=== PATIENT | male | born 1960 | race Caucasian/White ===

== ENCOUNTER 2017-11-07 08:19 | Observation (INO) | payer OTHER ==
[2017-11-07 08:48] LABS: Absolute Lymphocytes (CBC) 2.1 K/uL (0.7-4.9); Absolute Monocytes 0.8 K/uL (0.1-1.3); Absolute Neutrophil 7.8 K/uL (1.8-8.0); Basophils % 0.7 % (0-1.3); Eosinophils % 1.9 % (0-4.4); Hematocrit 44.4 % (39.6-49.0); Lymphocytes % 18.9 % (15.3-44.8); MCH 30.6 pg (27.0-35.0); MCV 87.7 fL (80-100); MPV 8.7 fL (7.6-11.3); Monocytes % 7.5 % (3.3-12.3); RBC Red Blood Cell Count 5.06 M/uL (4.33-5.43)
[2017-11-07 08:55] LABS: Protime INR 0.96
[2017-11-07] MEDS ORDERED: ASPIRIN 81 MG CHEWABLE TABLET ONE (09:09)
[2017-11-07 09:11] LABS: ALT/SGPT 37 U/L (12-78); AST/SGOT 16 U/L (15-37); Albumin 4.3 g/dL (3.4-5.0); Alkaline Phosphatase 75 U/L (45-117); BUN Blood Urea Nitrogen 18 mg/dL (7-18); Bicarbonate 23 mmol/L (21-32); Bilirubin Direct 0.1 mg/dL (0-0.2); Bilirubin Total 0.6 mg/dL (0.2-1.0); Glucose Level 201 mg/dL (74-106); Magnesium 2.2 mg/dL (1.8-2.4); NT PRO-BNP 37 pg/mL (<125); Potassium 3.6 mmol/L (3.5-5.1); Protein, Total 7.5 g/dL (6.4-8.2); Sodium Level 140 mmol/L (136-145); Troponin (Emerg Dept Use Only) < 0.02 ng/mL (0.0-0.045)
--- NOTE | 2017-11-07 10:00 | RAD REPORT ---
EXAM DESCRIPTION: Staci Single View11/07/2017 9:52 am CLINICAL HISTORY: Chest pain COMPARISON: none FINDINGS: The lungs appear clear of acute infiltrate. The heart is normal size IMPRESSION: No acute abnormalities displayed
--- NOTE | 2017-11-07 10:06 | EDPHYS ---
Physician Documentation [facility] Name: Santos Beltran Age: 57 yrs Sex: Male : 1960 Arrival Date: 11/07/2017 Time: 08:21 Bed 7 Private MD: None, None ED Physician Willie Meeks HPI: 11/07 09:25 This 57 yrs old Male presents to ER via Ambulatory with complaints of Chest jr8 Pain. 09:25 The patient or guardian reports chest pain that is located primarily in the substernal jr8 area. Onset: gradually, 2 day(s) ago, and became worse. The pain radiates to both shoulders, back. Associated signs and symptoms: The patient has no apparent associated signs or symptoms. The chest pain is described as a pressure, sharp. Duration: The patient or guardian reports multiple episodes. Modifying factors: The symptoms are alleviated by nothing. the symptoms are aggravated by deep breath. Severity of pain: At its worst the pain was moderate in the emergency department the pain is unchanged. The patient has not experienced similar symptoms in the past. The patient has not recently seen a physician. Historical: - Allergies: 08:41 No Known Allergies; ch - Home Meds: 08:41 metoprolol tartrate 100 mg Oral tab 1 tab [Active]; losartan 100 mg oral tab 1 tab once ch daily [Active]; terazosin 1 mg oral cap 1 cap once daily [Active]; clonidine HCl 0.1 mg Oral tab 1 tab as needed [Active]; - PMHx: 08:41 bph; Hypertension; ch - PSHx: 08:41 hernia-umbilical; ch - Immunization history:: Adult Immunizations up to date, Last tetanus immunization: not indicated for visit today. > 10 years ago Pneumococcal vaccine is not up to date, Flu vaccine is not up to date. - Social history:: Smoking status: Patient/guardian denies using tobacco, Patient uses alcohol, on a daily basis. admits to "couple of beers" a day. Patient/guardian denies using street drugs. - Ebola Screening: : Patient negative for fever greater than or equal to 101.5 degrees Fahrenheit, and additional compatible Ebola Virus Disease symptoms Patient denies exposure to infectious person Patient denies travel to an Ebola-affected area in the 21 days before illness onset No symptoms or risks identified at this time. ROS: 09:25 Eyes: Negative for injury, pain, redness, and discharge, ENT: Negative for injury, jr8 pain, and discharge, Neck: Negative for injury, pain, and swelling, Respiratory: Negative for shortness of breath, cough, wheezing, and pleuritic chest pain, Abdomen/GI: Negative for abdominal pain, nausea, vomiting, diarrhea, and constipation, Back: Negative for injury and pain, MS/Extremity: Negative for injury and deformity, Skin: Negative for injury, rash, and discoloration, Neuro: Negative for headache, weakness, numbness, tingling, and seizure. 09:25 Cardiovascular: Positive for chest pain, Negative for edema, orthopnea, palpitations, paroxysmal nocturnal dyspnea. Exam: 09:25 Eyes: Pupils equal round and reactive to light, extra-ocular motions intact. Lids and jr8 lashes normal. Conjunctiva and sclera are non-icteric and not injected. Cornea within normal limits. Periorbital areas with no swelling, redness, or edema. ENT: Nares patent. No nasal discharge, no septal abnormalities noted. Tympanic membranes are normal and external auditory canals are clear. Oropharynx with no redness, swelling, or masses, exudates, or evidence of obstruction, uvula midline. Mucous membranes moist. Neck: Trachea midline, no thyromegaly or masses palpated, and no cervical lymphadenopathy. Supple, full range of motion without nuchal rigidity, or vertebral point tenderness. No Meningismus. Chest/axilla: Normal chest wall appearance and motion. Nontender with no deformity. No lesions are appreciated. Cardiovascular: Regular rate and rhythm with a normal S1 and S2. No gallops, murmurs, or rubs. Normal PMI, no JVD. No pulse deficits. Respiratory: Lungs have equal breath sounds bilaterally, clear to auscultation and percussion. No rales, rhonchi or wheezes noted. No increased work of breathing, no retractions or nasal flaring. Abdomen/GI: Soft, non-tender, with normal bowel sounds. No distension or tympany. No guarding or rebound. No evidence of tenderness throughout. Back: No spinal tenderness. No costovertebral tenderness. Full range of motion. Skin: Warm, dry with normal turgor. Normal color with no rashes, no lesions, and no evidence of cellulitis. MS/ Extremity: Pulses equal, no cyanosis. Neurovascular intact. Full, normal range of motion. Neuro: Awake and alert, GCS 15, oriented to person, place, time, and situation. Cranial nerves II-XII grossly intact. Motor strength 5/5 in all extremities. Sensory grossly intact. Cerebellar exam normal. Normal gait. Vital Signs: 08:41 BP 178 / 101; Pulse 72; Resp 16; Temp 98.8; Pulse Ox 96% on R/A; Weight 108.86 kg; ch Height 5 ft. 10 in. (177.80 cm); Pain 3/10; 09:58 BP 123 / 74; Pulse 71; Resp 16; Temp 98.5; Pulse Ox 99% on R/A; Pain 2/10; ch 10:29 BP 144 / 78; Pulse 67; Resp 18; Temp 98.5; Pulse Ox 99% on R/A; Pain 1/10; ch 11:43 BP 128 / 80; Pulse 68; Resp 14; Temp 98.3; Pulse Ox 99% on R/A; Pain 0/10; ch 08:41 Body Mass Index 34.44 (108.86 kg, 177.80 cm) ch MDM: 08:29 Patient medically screened. 8 10:02 HEART Score: History: Moderately Suspicious (1), ECG: Normal (0), Age: > 45 and < 65 jr8 years (1), Risk Factors: > or = 3 Risk factors for atherosclerotic disease (2), [Hypertension] [DM] [+ Family HX] [Obesity] Troponin: < or = 1 x Normal Limit (0). The patient was given aspirin in the Emergency Department. Data reviewed: vital signs, nurses notes, lab test result(s), EKG, radiologic studies, plain films. Data interpreted: Pulse oximetry: on room air is 99 %. Interpretation: normal. Counseling: I had a detailed discussion with the patient and/or guardian regarding: the historical points, exam findings, and any diagnostic results supporting the discharge/admit diagnosis, lab results, radiology results, the need for further work-up and treatment in the hospital. 11/07 08:34 Order name: Basic Metabolic Panel [facility] 11/07 08:34 Order name: CBC with Diff; Complete Time: 09:04 [facility] 11/07 08:34 Order name: LFT's; Complete Time: 09:26 jr8 09/15 08:34 Order name: Magnesium; Complete Time: 09:26 11/07 08:34 Order name: NT PRO-BNP; Complete Time: 09:26 11/07 08:34 Order name: PT-INR; Complete Time: 09:04 11/07 08:34 Order name: Troponin (emerg Dept Use Only); Complete Time: 09:26 11/07 08:34 Order name: XRAY Chest (1 view); Complete Time: 10:02 11/07 08:34 Order name: EKG; Complete Time: 08:35 11/07 08:34 Order name: Cardiac monitoring; Complete Time: 08:43 11/07 08:34 Order name: EKG - Nurse/Tech; Complete Time: 08:43 11/07 08:35 Order name: Basic Metabolic Panel; Complete Time: 09:26 EDMA 11/07 09:13 Order name: Urine Dipstick--Ancillary (enter results) 11/07 08:34 Order name: IV Saline Lock; Complete Time: 08:43 11/07 08:34 Order name: Labs collected and sent; Complete Time: 08:43 11/07 08:34 Order name: O2 Per Protocol; Complete Time: 08:43 11/07 08:34 Order name: O2 Sat Monitoring; Complete Time: 08:43 11/07 08:34 Order name: Urine Dipstick-Ancillary (obtain specimen); Complete Time: 09:10 Administered Medications: 09:10 Drug: Aspirin Chewable Tablet 324 mg Route: PO; aa5 09:57 Follow up: Response: No adverse reaction; Marked relief of symptoms ch Disposition: 11/07/17 10:05 Hospitalization ordered by Manuela Leon for Observation. Preliminary diagnosis is Chest pain, unspecified. - Bed requested for Telemetry/MedSurg (observation). - Status is Observation. ch - Condition is Stable. - Problem is new. - Symptoms have improved. UTI on Admission? No Addendum: 11/09/2017 07:49 Co-signature as Attending Physician, Willie Meeks MD I agree with the assessment and w a plan of care. Signatures: Dispatcher [employer] EDYulissa Brunson RN RN hesham Jessica Araujo, RN RN dw Annia Darby, RN RN aa5 Armani Naik PA PA jr8 Willie Meeks MD MD wa Corrections: (The following items were deleted from the chart) 11/07 11:33 10:05 Hospitalization Ordered by Manuela Leon MD for Observation. Preliminary diagnosis is Chest pain, unspecified. Bed requested for Telemetry/MedSurg (observation). Status is Observation. Condition is Stable. Problem is new. Symptoms have improved. UTI on Admission? No. jr8 12:35 11:33 11/07/2017 10:05 Hospitalization Ordered by Manuela Leon MD for Observation. Preliminary diagnosis is Chest pain, unspecified. Bed requested for Telemetry/MedSurg (observation). Status is Observation. Condition is Stable. Problem is new. Symptoms have improved. UTI on Admission? No. dw
--- NOTE | 2017-11-07 10:06 | ER ---
Nurse's Notes [facility] Name: Santos Beltran Age: 57 yrs Sex: Male : 1960 Arrival Date: 11/07/2017 Time: 08:21 Bed 7 Private MD: None, None Diagnosis: Chest pain, unspecified Presentation: 11/07 08:35 Presenting complaint: Patient states: pain to lower neck/upper chest started Thursday ch evening. comes and goes, but pain is getting progressively worse. pt is worse with deep breath in. last episode was at 0500. pt has hypertension and father of massive heart attack after having several heart stents. stopped smoking 12 years ago, pt drinks daily, more on the weekends. Transition of care: patient was not received from another setting of care. Onset of symptoms was November 05, 2017 at 15:00. Risk Assessment: Do you want to hurt yourself or someone else? Patient reports no desire to harm self or others. Initial Sepsis Screen: Does the patient meet any 2 criteria? No. Patient's initial sepsis screen is negative. Does the patient have a suspected source of infection? No. Patient's initial sepsis screen is negative. Care prior to arrival: None. 08:35 Method Of Arrival: Ambulatory 08:35 Acuity: JIMMY 3 ch Triage Assessment: 08:41 General: Appears in no apparent distress. comfortable, Behavior is calm, cooperative, ch appropriate for age. Pain: Complains of pain in right clavicle, left clavicle, anterior aspect of right upper chest, anterior aspect of left upper chest and mid-sternal area Pain radiates to back, chest, left arm and neck Pain currently is 3 out of 10 on a pain scale. at worst was 9 out of 10 on a pain scale. Pain began suddenly, 2-3 days ago. Neuro: No deficits noted. Cardiovascular: Heart tones S1 S2 present Capillary refill < 3 seconds in bilateral fingers Clubbing of nail beds is absent Patient's skin is warm and dry. Respiratory: Airway is patent Respiratory effort is even, unlabored, Breath sounds are clear bilaterally. Historical: - Allergies: 08:41 No Known Allergies; ch - Home Meds: 08:41 metoprolol tartrate 100 mg Oral tab 1 tab [Active]; losartan 100 mg oral tab 1 tab once ch daily [Active]; terazosin 1 mg oral cap 1 cap once daily [Active]; clonidine HCl 0.1 mg Oral tab 1 tab as needed [Active]; - PMHx: 08:41 bph; Hypertension; ch - PSHx: 08:41 hernia-umbilical; ch - Immunization history:: Adult Immunizations up to date, Last tetanus immunization: not indicated for visit today. > 10 years ago Pneumococcal vaccine is not up to date, Flu vaccine is not up to date. - Social history:: Smoking status: Patient/guardian denies using tobacco, Patient uses alcohol, on a daily basis. admits to "couple of beers" a day. Patient/guardian denies using street drugs. - Ebola Screening: : Patient negative for fever greater than or equal to 101.5 degrees Fahrenheit, and additional compatible Ebola Virus Disease symptoms Patient denies exposure to infectious person Patient denies travel to an Ebola-affected area in the 21 days before illness onset No symptoms or risks identified at this time. Screenin:32 Abuse screen: Denies threats or abuse. Nutritional screening: No deficits noted. la1 Tuberculosis screening: No symptoms or risk factors identified. Fall Risk None identified. Assessment: 09:58 Reassessment: Patient appears in no apparent distress at this time. Patient and/or ch family updated on plan of care and expected duration. Pain level reassessed. Patient is alert, oriented x 3, equal unlabored respirations, skin warm/dry/pink. Patient states feeling better. General: Appears in no apparent distress. uncomfortable. Pain: Denies pain. Neuro: No deficits noted. Level of Consciousness is awake, alert, obeys commands, Oriented to person, place, time, situation. Cardiovascular: No deficits noted. 10:29 Reassessment: Patient appears in no apparent distress at this time. Patient and/or ch family updated on plan of care and expected duration. Pain level reassessed. Patient is alert, oriented x 3, equal unlabored respirations, skin warm/dry/pink. pt c/o increase pain after walking to restroom, states he flet more pain. pain is gone by the time I get in the room. pt verb understanding of not walking any more. awaiting room assignment now. Pain: Complains of pain in chest. 11:42 Reassessment: Patient appears in no apparent distress at this time. attempting to call ch report now. 11:55 Reassessment: Patient appears in no apparent distress at this time. I attempt to call report again, told to call back in 5 min as the nurse does not know she is getting a patient. Vital Signs: 08:41 BP 178 / 101; Pulse 72; Resp 16; Temp 98.8; Pulse Ox 96% on R/A; Weight 108.86 kg; ch Height 5 ft. 10 in. (177.80 cm); Pain 3/10; 09:58 BP 123 / 74; Pulse 71; Resp 16; Temp 98.5; Pulse Ox 99% on R/A; Pain 2/10; ch 10:29 BP 144 / 78; Pulse 67; Resp 18; Temp 98.5; Pulse Ox 99% on R/A; Pain 1/10; ch 11:43 BP 128 / 80; Pulse 68; Resp 14; Temp 98.3; Pulse Ox 99% on R/A; Pain 0/10; ch 08:41 Body Mass Index 34.44 (108.86 kg, 177.80 cm) Vitals: 09:58 Cardiac Rhythm Assessment Regular Sinus rhythm. ED Course: 08:21 Patient arrived in ED. mr 08:21 None, None is Private Physician. mr 08:23 Yulissa Willoughby, RN is Primary Nurse. 08:29 Armani Naik PA is PHCP. jr8 08:29 Willie Meeks MD is Attending Physician. jr8 08:32 Inserted saline lock: 20 gauge in right wrist, using aseptic technique. Blood collected.la1 08:32 No provider procedures requiring assistance completed. EKG done, by product technician. reviewed la1 by Armani MENDOZA. Patient maintains SpO2 saturation greater than 95% on room air. 08:32 Placed in gown. Bed in low position. Call light in reach. quality assurance monitor chassis on. Pulse ox la1 on. NIBP on. 08:32 Arm band placed on left wrist. la1 08:39 Triage completed. 08:41 EKG completed in triage. Results shown to . EKG completed in triage. Results shown to . EKG completed in triage. Results shown to MD. 09:52 XRAY Chest (1 view) In Process Unspecified. EDMS 10:04 Manuela Leon MD is Hospitalizing Provider. jr8 Administered Medications: 09:10 Drug: Aspirin Chewable Tablet 324 mg Route: PO; aa5 09:57 Follow up: Response: No adverse reaction; Marked relief of symptoms Outcome: 10:05 Decision to Hospitalize by Provider. jr8 12:35 Patient left the ED. Signatures: Dispatcher [employer] EDYulissa Brunson RN RN Dottie Polanco Annia Darby RN RN aa5 Armani Naik PA PA jr Andriy Arreola RN RN la1
[2017-11-07 13:12] LABS: Urine Blood NEGATIVE (NEG); Urine Glucose NEGATIVE (NEG); Urine Protein NEGATIVE (NEG)
[2017-11-07 13:56] VITALS: BMI 34.4
[2017-11-07] MEDS ORDERED: ONDANSETRON 4 MG/2 ML VIAL IV PRN (16:44)
[2017-11-07] MEDS ORDERED: NITROGLYCERIN 0.4 MG/TAB SL PRN (16:44)
[2017-11-07] MEDS ORDERED: ACETAMINOPHEN 500 MG TAB PO PRN (16:44)
[2017-11-07] MEDS ORDERED: MORPHINE 4 MG/ML SYR IV PRN (16:44)
[2017-11-07] MEDS ORDERED: cloNIDine HCl 0.1 MG TAB PO PRN (16:47)
[2017-11-07] MEDS ORDERED: TERAZOSIN HCL 1 MG CAP PO SCH (17:00)
[2017-11-07] MEDS ORDERED: ENOXAPARIN 40 MG/0.4 ML SQ SCH (17:00)
[2017-11-07 17:47] LABS: Creatine Phosphokinase 121 U/L (39-308); Troponin I < 0.02 ng/mL (0.0-0.045)
[2017-11-07] MEDS: ATORVASTATIN 40 MG TAB PO SCH ×2 (20:28→20:30)
--- NOTE | 2017-11-07 20:50 | HP ---
Date of Admission: 11/07/2017 Reason For Admission: Chest pain. History Of Present Illness: This is a 57-year-old gentleman who presented with history of hypertensi on, enlarged prostate, with progressive upper chest pain that is radiating to both shoulders, not rel ated to exertion. No nausea or vomiting. No shortness of breath. In the ER, he was evaluated and E KG was normal. Cardiac enzymes were negative. He did not relate the pain to exertion. The patient admitted to be ruled out. He is currently feeling well. He received aspirin in the emergency room a nd admitted. His is at the bedside. He is very anxious to be discharged, if his cardiac enzyme s are negative. Review of Systems: Otherwise as below. Past Medical History: Significant for hypertension, enlarged prostate. Past Surgical History: Significant for hernia repair. Allergies: NONE. Social History: The patient is . He has 7 kids. He works as a truck driver helper. He does not sm christiano or use any drugs, but he does drink every day for some years. Family History: Significant for father of myocardial infarction. Mother alive and relatively h ealthy. Review of Systems: Denies any fever, chills, night sweats, dizziness, lightheaded, headache, blurred vision. There is n o change in mood or affect. Does not have any cough, sputum, or shortness of breath. He does have c hest pain. No PND, orthopnea, dyspnea on exertion. No lower extremity edema. No nausea, vomiting, or abdominal pain, change in bowel movement, diarrhea, or constipation. No dysuria, frequency, urgen cy, hematuria. There is no history of depression, anxiety, seizure or stroke. Physical Examination: Vital Signs: Blood pressure is 127/79, respiratory rate 16, pulse 60, temperature 98.1. General: The patient is alert and oriented x3. Does not look in any distress. HEENT: Atraumatic, normocephalic. PERRLA. Oral mucosa is moist. Neck: Supple. No JVD. No carotid bruits. Chest: Clear to auscultation. Good air entry. Heart: Regular rate and rhythm. S1, S2 normal. No gallop or murmur. Abdomen: Soft, nontender, No masses. No hepatosplenomegaly. Obese. Positive bowel sounds. Extremities: No clubbing, cyanosis, or edema. No calf tenderness. Neurologic: Grossly intact. Cranial exam 2-12 intact. Normal sensation. Normal reflexes. Normal muscle strength. Laboratory Data: Today showed CBC within normal except for white blood cells of 11. PT/INR was norm al. Chemistry within normal except for glucose of 201, but the patient was not fasting. Troponin is less than 0.02. BNP of 37. Chest x-ray was normal. Assessment And Plan: 1.A 57-year-old gentleman with history of hypertension, overweight, who presented with atypical uppe r chest pain. Impression, chest pain, rule out myocardial infarction. We will admit the patient to the floor, keep him on tele. Check cardiac enzymes. He was on aspirin, beta-ramon, TATE inhibitor. I will check a lipid panel, and we will place the patient on statin. No need for full doses Loveno x. The patient's troponin is normal. If cardiac enzymes are negative, we will discharge him home to [place] and arrange for stress test as outpatient. 2.Overweight, advised diet and exercise. 3.We will check lipid profile. 4.Enlarged prostate. We will place the patient on Flomax. KUNAL/PHIL Voice ID: [id number]
[2017-11-08 01:39] LABS: CKMB Creatine Kinase MB < 1.0 ng/mL (0.3-3.6); Creatine Phosphokinase 87 U/L (39-308); Troponin I < 0.02 ng/mL (0.0-0.045)
[2017-11-08 07:09] LABS: HDL Cholesterol 31 mg/dL (40-60); LDL Cholesterol, Calculated ND (<130)
[2017-11-08 07:29] LABS: LDL, Direct 99 mg/dL (100-129)
[2017-11-08] MEDS ORDERED: ASPIRIN 325 MG TAB PO SCH (09:00)
[2017-11-08] MEDS ORDERED: LOSARTAN POTASSIUM 50 MG TABLET PO SCH (09:00)
[2017-11-08] MEDS ORDERED: METOPROLOL TAR 50 MG TAB PO SCH (09:00)
[2017-11-08 09:14] VITALS: O2SAT 95
[2017-11-08 10:00] LABS: CKMB Creatine Kinase MB < 1.0 ng/mL (0.3-3.6); Creatine Phosphokinase 88 U/L (39-308); Troponin I < 0.02 ng/mL (0.0-0.045)
[2017-11-08 12:13] VITALS: BP 160/72; TEMP 97.9
--- NOTE | 2017-11-09 06:57 | EKG ---
Test Date: 2017-11-07 Test Time: 08:29:19 Circulator: LUIS MEASUREMENT RESULTS: Intervals: Rate: 68 [place]: 200 QRSD: 100 QT: 398 QTc: 423 [place]: P: 54 [place]: 200 QRS: 48 T: 71 INTERPRETIVE STATEMENTS: Normal sinus rhythm Normal ECG No previous ECG available for comparison Electronically Signed On 11-09-17 06:51:54 CDT by Escobar Garner
--- NOTE | 2017-11-09 10:00 | DS ---
Date of Discharge: 11/08/2017 Discharge Diagnoses: 1.Chest pain. Rule out myocardial infarction. 2.Hypertriglyceridemia. 3.Overweight. 4.Possible sleep apnea. 5.Benign prostatic hypertrophy. 6.Hypertension. Procedure: Chest x-ray. Consult: None. History Of Present Illness: Please refer to my history and physical exam note from yesterday. Hospital Course: Initially, the patient presented with atypical upper chest pain. In the ER, he was evaluated. Cardiac enzymes were negative. The EKG was normal. He was admitted overnight for obser vation, and his cardiac enzymes to be negative. His lipid profile showed elevated triglycerides at 5 44. He was advised to be on diet, low fat, and he will need to be on triglyceride medication by [facility] physician. I advised him to discuss that with his primary care physician on Thursday. I advi sed to lose weight and stay active. In the meantime, he will have a stress test on Thursday, prescript ion given. Advised to avoid exertion until stress test is done, because if stress test is positive, then he will need to see Cardiology for cardiac cath. is concerned about possibility of sleep a pnea. Advised to follow up with primary care physician. The patient was continued on his blood pres sure medication and done very well this morning. He was discharged home in stable condition. Discharge Condition: Stable. Discharge Diet: Cardiac. Discharge Followup: With his primary care physician on Thursday to start anti-triglyceride medicine, t omorrow morning, Thursday. Discharge Activity: As tolerated without any exertion. Discharge Medications: Aspirin 81 mg once a day, clonidine 0.1 mg once a day as needed as before, lo sartan 100 mg once a day, metoprolol 100 mg once a day, Hytrin 1 mg at nighttime once a day. Discharge Physical Examination: Vital Signs: Blood pressure is 142/90, respiratory rate 18, pulse 7 8, temperature 98.5. General: He is alert, oriented x3. Does not look in any distress. HEENT: Atraumatic, normocephalic. PERRLA. Oral mucosa is moist. Neck: Supple. No JVD. No carotid bruits. Abdomen: Soft, nontender. No masses. No hepatosplenomegaly. Positive bowel sounds. Extremities: No clubbing, no cyanosis, or edema. No calf tenderness. Neurologic: Grossly intact. MT/MODL Voice ID: [id number] Report ID: [id number]
== END 2017-11-08 12:53 | disposition home or self-care (01) ==
LOC: ER 08:19 → ERHOLD 10:33 → 4TH 12:11
PROVIDERS: ADMIT Internal Medicine; ATTEND Internal Medicine
DX: R07.9 Chest pain, unspecified (principal); E78.1 Pure hyperglyceridemia; I10 Essential (primary) hypertension; N40.0 Benign prostatic hyperplasia without lower urinary tract symptoms; E66.3 Overweight; Z68.34 Body mass index [BMI] 34.0-34.9, adult
CPT/HCPCS: 36415; 71045; 80048; 80061; 80076; 81003; 82550; 82553; 83735; 83880; 84484; 85025; 85610; 93005; 99285; G0378; J1650

== ENCOUNTER 2021-03-22 16:12 | Inpatient (IN) | payer OTHER ==
--- OUTSIDE RECORDS SUMMARY | 2021-03-22 16:15 | XMS REPORT | Continuity of Care Document ---
:1960 Author Organization [facility] t Address [address] [place] [address] Care Team Providers Name Role Phone Unavailable Unavailable Unavailable Problems Condition Condition Condition Status Onset Resolution Last Treating Co mments Source Name Details Category Date Date Treatment Clinician Date Left sided Left sided Diagnosis Active [facility] Clinics Pain, Pain, Diagnosis Active [facility] joint, joint, [facility] - knee, left knee, left Me moria l [facility] ent Clinics Primary Primary Diagnosis [facility] osteoarthr osteoarthr Ruby [facility]es - [facility] left knee left knee l [facility] ent [facility] Allergies, Adverse Reactions, Alerts This patient has no known allergies or adverse reactions. Medications Ordered Filled Start Stop Current Ordering Indication Dosage Frequency Signature Comments Components Source Medication Medication Date Date Medication? Clinician (SIG) Name Name MethylHAKAN Lozada 2017-02- No Ric [address] [facility] ISolone ISolone 0-08 12-30 Samson with food L ukes - 00:00: 00:00 or milk in Memori a 00 :00 the l morning [facility] ent Clinics losartan losartan Yes Ric one tab [facility] daily [facility] ent [facility] Metoprolol Metoprolol Yes Ric [address] [facility] Succinate Succinate Samson Piyush es - ER ER [facility] ent [facility] Clonidine Clonidine Yes Ric [address] [facility] HCl HCl Samson at bedtime [facility] ent [facility] Terazosin Terazosin Yes Ric [address] [facility] HCl HCl Samson [facility] ent [facility] Procedures This patient has no known procedures. Encounters Start End Encounter Admission Attending Care Care Encounter Source Date/Time Date/Time Type Type Clinicians Facility Department ID 2017-11-30 2017-11-30 Outpatient [place] [id number] [facility] 15:00:00 15:00:00 [facility] ent Clinics Results This patient has no known results.
--- NOTE | 2021-03-22 18:10 | RAD REPORT ---
EXAM DESCRIPTION: Staci Single View03/22/2021 5:30 pm CLINICAL HISTORY: sob COMPARISON: 2018 FINDINGS: Moderate bilateral patchy lung opacities. Heart is mildly to moderately enlarged IMPRESSION: Moderate bilateral patchy lung opacities probably pneumonia
[2021-03-22 18:37] LABS: Absolute Lymphocytes (CBC) 0.7 K/uL (0.7-4.9); Hematocrit 42.7 % (39.6-49.0); Lymphocytes % 9.6 % (15.3-44.8); MPV 7.8 fL (7.6-11.3); RBC Red Blood Cell Count 4.91 M/uL (4.33-5.43)
[2021-03-22 18:41] LABS: Protime INR 1.04
[2021-03-22 18:49] LABS: Albumin 3.2 g/dL (3.4-5.0); Bilirubin Direct 0.2 mg/dL (0-0.2); Bilirubin Total 0.5 mg/dL (0.2-1.0); Ferritin 1117.4 ng/mL (26-388); Potassium 3.7 mmol/L (3.5-5.1); Protein, Total 7.6 g/dL (6.4-8.2); Troponin High Sensitivity 6.2 pg/mL (<58.9)
[2021-03-22] MEDS ORDERED: METHYLPREDNISOLONE 125 MG INJ ONE (18:50)
--- NOTE | 2021-03-22 19:32 | RAD REPORT ---
EXAM DESCRIPTION: CT - Chest For Pe Angio - 03/22/2021 7:20 pm CLINICAL HISTORY: sob COMPARISON: Chest x-ray March 22, 2021 TECHNIQUE: Dynamically enhanced axial 3 mm thick images of the chest were obtained during administra tion of <100> mL Isovue 370 IV contrast. Coronal and oblique reconstruction images were generated and reviewed. Exam utilizes a protocol for optimal evaluation of pulmonary arterial tree. Maximum intensity projections 3D imaging was utilized All CT scans are performed using dose optimization technique as appropriate and may include automated exposure control or mA/KV adjustment according to patient size. FINDINGS: A pulmonary embolus is not seen. A thoracic aortic aneurysm is not noted. A pleural effusion is not seen. A pericardial effusion is not seen. Moderate bilateral ground-glass opacities within the lungs Fatty liver IMPRESSION: Negative for a pulmonary embolism. Moderate bilateral ground-glass opacities within the lungs can be seen with Covid pneumonia
--- NOTE | 2021-03-22 19:58 | ER ---
Nurse's Notes [facility] Name: Santos Beltran Age: 61 yrs Sex: Male : 1960 Arrival Date: 03/22/2021 Time: 16:17 Bed 14 Private MD: Robert Quesada Diagnosis: Pneumonia due to SARS-associated coronavirus;Hypoxemia Presentation: 03/22 16:26 Chief complaint: Patient states: patient stated he recently tested positive for COVID a ap3 few days ago. Patient states that today, his oxygen was reading in the 80's. He feels like he just wasn't getting better. Coronavirus screen: Client reports previous positive COVID test result. Ebola Screen: No symptoms or risks identified at this time. Initial Sepsis Screen: Does the patient meet any 2 criteria? No. Patient's initial sepsis screen is negative. Does the patient have a suspected source of infection? Yes: Productive cough/pneumonia. Risk Assessment: Do you want to hurt yourself or someone else? Patient reports no desire to harm self or others. Onset of symptoms was March 20, 2021. 16:26 Method Of Arrival: Wheelchair ap3 16:26 Acuity: JIMMY 3 ap3 Historical: - Allergies: 16:30 No Known Allergies; ap3 - Home Meds: 16:30 Metformin Oral [Active]; ap3 19:14 clonidine HCl 0.1 mg Oral tab 1 tab as needed [Active]; losartan 100 mg Oral tab 1 tab flavia once daily [Active]; metoprolol tartrate 100 mg Oral tab 1 tab [Active]; terazosin 1 mg Oral cap 1 cap once daily [Active]; - PMHx: 16:30 BPH; Hypertension; Diabetes mellitus; ap3 - Immunization history:: Client reports having NOT received the Covid vaccine. Flu vaccine is not up to date. - Social history:: Smoking status: Patient denies any tobacco usage or history of. Screenin:32 Abuse screen: Denies threats or abuse. Nutritional screening: No deficits noted. ap3 Tuberculosis screening: No symptoms or risk factors identified. 19:14 Fall Risk None identified. flavia Assessment: 16:32 General: Appears in no apparent distress. Behavior is calm, cooperative. Pain: Denies ap3 pain. Neuro: Level of Consciousness is awake, alert, obeys commands, Oriented to person, place, time, situation, Appropriate for age. Respiratory: Reports shortness of breath cough that is Airway is patent Respiratory effort is even, with nasal flaring. 19:11 General: Appears in no apparent distress. comfortable. Pain: Denies pain. Respiratory: flavia Reports shortness of breath cough that is RT paged due to the O2 sat and possible need for Bipap. He was taken for CT chest \\T\\ 1857. 19:44 General: RT was here \\T\\ 1927 and the pt had just returned from CT. His oxygen was flavia increased to 5L per NC. 19:57 General: RT is at bedside speaking to the pt about Bipap. flavia 21:04 General: The pt is eating a sandwich and visiting his , at bedside. . flavia 23:03 General: The pt is tolerating the NC at 6 L well. His remains at bedside. He flavia denies any SOB or pain. . 03/23 01:11 General: The PA and I were at bedside when he discussed "code status" with the pt and flavia his . The pt and his were receptive and said that they will "talk about it and tell us tomorrow". We explained that this was a decision that should be his and his alone. Initially, he became more anxious, but we explained to him that this was due to him adamantly stating "I don't want to be intubated", only to be undecided when we asked. At present, the pt is sleeping with his at bedside. . Vital Signs: 03/22 16:26 BP 134 / 86; Pulse 98; Resp 19; Temp 98.7; Pulse Ox 89% on R/A; Weight 113.4 kg; Height ap3 5 ft. 11 in. (180.34 cm); 18:54 BP 138 / 84; Pulse 82; Resp 22; Pulse Ox 93% on 6 lpm NC; ic1 19:40 BP 153 / 97; Pulse 85; Resp 26; Pulse Ox 92% on 4 lpm NC; flavia 21:03 BP 153 / 91; Pulse 90; Resp 26; Pulse Ox 92% on 6 lpm NC; flavia 22:07 BP 123 / 75; Pulse 62; Resp 28; Pulse Ox 92% on 6 lpm NC; flavia 23:03 BP 110 / 98; Pulse 84; Resp 28; Pulse Ox 91% on 6 lpm NC; Pain 0/10; flavia 03/23 00:00 BP 163 / 101; Pulse 84; Resp 24; Pulse Ox 97% on 6 lpm NC; Pain 0/10; flavia 01:10 BP 149 / 88; Pulse 66; Resp 20; Pulse Ox 97% on NC; flavia 02:14 BP 140 / 89; Pulse 71; Resp 24; Pulse Ox 96% on 6 lpm NC; Pain 0/10; flavia 03:03 BP 153 / 94; Pulse 68; Resp 26; Pulse Ox 92% on 6 lpm NC; flavia 04:40 BP 166 / 98; Pulse 57; Resp 26; Pulse Ox 89% on 6 lpm NC; flavia 05:29 BP 159 / 77; Pulse 51; Resp 26; Pulse Ox 95% on 6 lpm NC; flavia 05:59 BP 154 / 82; Pulse 53; Resp 26; Pulse Ox 97% on 6 lpm NC; flavia 03/22 16:26 Body Mass Index 34.87 (113.40 kg, 180.34 cm) ap3 ED Course: 03/22 16:17 Patient arrived in ED. ds1 16:21 Robert Quesada MD is Private Physician. mr 16:30 Triage completed. ap3 16:32 Arm band placed on right wrist. ap3 17:30 CXR XRAY In Process Unspecified. EDMS 18:22 Tyler López PA is PHCP. cp 18:22 Jose L Gustafson MD is Attending Physician. cp 18:54 Inserted saline lock: 20 gauge in left antecubital area, using aseptic technique. ic1 19:10 Gabbie Quiroz, RN is Primary Nurse. flavia 19:14 No provider procedures requiring assistance completed. flavia 19:15 Patient has correct armband on for positive identification. Bed in low position. Side flavia rails up X2. 19:21 CT Chest For PE Angio In Process Unspecified. EDMS 19:39 CRP Sent. flavia 19:57 Robert Quesada MD is Hospitalizing Provider. cp 19:57 BMP Sent. flavia 19:57 Blood Culture Adult (2) Sent. flavia 21:09 CRP Sent. flavia 03/23 03:05 No apparent distress. Resting quietly. Appears to be sleeping. Pt's at bedside. flavia 08:31 Primary Nurse role handed off by Gabbie Quiroz RN eb 03/24 00:09 Patient admitted, IV remains in place. st1 Administered Medications: 03/22 18:54 Drug: SOLU-Medrol (methylPrednisoLONE) 125 mg Route: IVP; Site: left antecubital; ic1 21:05 Follow up: Response: No adverse reaction flavia 20:45 Drug: NS 0.9% 1000 ml Route: IV; Rate: 1000 ml/hr; Site: left antecubital; flavia 21:58 Follow up: IV Status: Completed infusion flavia 23:00 Follow up: IV Status: Completed infusion; IV Intake: 1000ml flavia 20:45 Drug: Rocephin - (cefTRIAXone) 1 grams Route: IVPB; Infused Over: 30 mins; Site: left flavia antecubital; 20:52 Follow up: Response: No adverse reaction; IV Intake: 100ml flavia 20:52 Drug: Zithromax (azithromycin) 500 mg Route: IVPB; Infused Over: 1 hrs; Site: left flavia antecubital; 22:00 Follow up: IV Status: Completed infusion; IV Intake: 250ml flavia Intake: 20:52 IV: 100ml; Total: 100ml. flavia 22:00 IV: 250ml; Total: 350ml. flavia 23:00 IV: 1000ml; Total: 1350ml. flavia Outcome: 19:14 Condition: stable flavia 19:58 Decision to Hospitalize by Provider. cp 03/24 00:09 Admitted to Med/surg accompanied by nurse, family with patient, via wheelchair, with st1 oxygen, with chart, Report called to JOSE ALFREDO Lopez 00:10 Patient left the ED. st1 Signatures: Dispatcher [employer] EDMS Jonna Walker, LOCATE TECHNICIANRossC LOCATE TECHNICIAN-Marco A Courtney Polanco, Regina ds1 Tyler López PA PA cp Asya Sultana RN RN ap3 Botello, Elizabeth eb O'Farrell, Brenda, Lexi Delacruz RN RN RN ic1 Jeannette Mesa RN RN st1
--- NOTE | 2021-03-22 19:58 | EDPHYS ---
Physician Documentation [facility] Name: Santos Beltran Age: 61 yrs Sex: Male : 1960 Arrival Date: 03/22/2021 Time: 16:17 Bed 14 Private MD: Robert Quesada ED Physician Jose L Gustafson HPI: 03/22 16:55 This 61 yrs old Male presents to ER via Wheelchair with complaints of Covid+. kb 16:55 The patient or guardian reports cough, that is intermittent, described as moderate, kb difficulty breathing. Onset: The symptoms/episode began/occurred 11 day(s) ago. Severity of symptoms: At their worst the symptoms were moderate, in the emergency department the symptoms are unchanged. Modifying factors: The symptoms are alleviated by nothing, the symptoms are aggravated by exertion. Associated signs and symptoms: The patient has no apparent associated signs or symptoms. The patient has not experienced similar symptoms in the past. The patient has been recently seen by a physician: the patient's primary care provider, with similar presenting complaints, and was sent to the [facility] Emergency Department for further evaluation. Pt reports cough and shortness of breath for 11 days. Tested positive for COVID a few days ago. Went to PCP today and was sent to ED for eval. States sats at home have been 84-86%. . Historical: - Allergies: 16:30 No Known Allergies; ap3 - Home Meds: 16:30 Metformin Oral [Active]; ap3 19:14 clonidine HCl 0.1 mg Oral tab 1 tab as needed [Active]; losartan 100 mg Oral tab 1 tab flavia once daily [Active]; metoprolol tartrate 100 mg Oral tab 1 tab [Active]; terazosin 1 mg Oral cap 1 cap once daily [Active]; - PMHx: 16:30 BPH; Hypertension; Diabetes mellitus; ap3 - Immunization history:: Client reports having NOT received the Covid vaccine. Flu vaccine is not up to date. - Social history:: Smoking status: Patient denies any tobacco usage or history of. ROS: 16:54 Constitutional: Negative for fever, chills, and weight loss. kb 16:54 Respiratory: Positive for cough, dyspnea on exertion, shortness of breath, Negative for hemoptysis, orthopnea, pleurisy, sputum production, wheezing. 16:54 All other systems are negative. Exam: 16:54 Constitutional: This is a well developed, well nourished patient who is awake, alert, kb and in no acute distress. Head/Face: Normocephalic, atraumatic. ENT: Moist Mucous membranes Cardiovascular: Regular rate and rhythm with a normal S1 and S2. No gallops, murmurs, or rubs. No pulse deficits. Skin: Warm, dry with normal turgor. Normal color. MS/ Extremity: Pulses equal, no cyanosis. Neurovascular intact. Full, normal range of motion. Neuro: Awake and alert, GCS 15, oriented to person, place, time, and situation. Moves all extremities. Normal gait. Psych: Awake, alert, with orientation to person, place and time. Behavior, mood, and affect are within normal limits. 16:54 Respiratory: mild respiratory distress is noted, Respirations: labored breathing, that is mild, Breath sounds: are clear throughout. 18:40 ECG was reviewed by the Attending Physician. cp Vital Signs: 16:26 BP 134 / 86; Pulse 98; Resp 19; Temp 98.7; Pulse Ox 89% on R/A; Weight 113.4 kg; Height ap3 5 ft. 11 in. (180.34 cm); 18:54 BP 138 / 84; Pulse 82; Resp 22; Pulse Ox 93% on 6 lpm NC; ic1 19:40 BP 153 / 97; Pulse 85; Resp 26; Pulse Ox 92% on 4 lpm NC; flavia 21:03 BP 153 / 91; Pulse 90; Resp 26; Pulse Ox 92% on 6 lpm NC; flavia 22:07 BP 123 / 75; Pulse 62; Resp 28; Pulse Ox 92% on 6 lpm NC; flavia 23:03 BP 110 / 98; Pulse 84; Resp 28; Pulse Ox 91% on 6 lpm NC; Pain 0/10; flavia 03/23 00:00 BP 163 / 101; Pulse 84; Resp 24; Pulse Ox 97% on 6 lpm NC; Pain 0/10; flavia 01:10 BP 149 / 88; Pulse 66; Resp 20; Pulse Ox 97% on NC; flavia 02:14 BP 140 / 89; Pulse 71; Resp 24; Pulse Ox 96% on 6 lpm NC; Pain 0/10; flavia 03:03 BP 153 / 94; Pulse 68; Resp 26; Pulse Ox 92% on 6 lpm NC; flavia 04:40 BP 166 / 98; Pulse 57; Resp 26; Pulse Ox 89% on 6 lpm NC; flavia 05:29 BP 159 / 77; Pulse 51; Resp 26; Pulse Ox 95% on 6 lpm NC; flavia 05:59 BP 154 / 82; Pulse 53; Resp 26; Pulse Ox 97% on 6 lpm NC; flavia 03/22 16:26 Body Mass Index 34.87 (113.40 kg, 180.34 cm) ap3 MDM: 03/22 16:33 Patient medically screened. kb 16:54 Data reviewed: vital signs, nurses notes. Data interpreted: Pulse oximetry: on room air kb is 86 %. Interpretation: hypoxia. Plan: O2 by NC applied. 03/22 16:36 Order name: BMP kb 03/22 16:36 Order name: Blood Culture Adult (2) kb 03/22 16:36 Order name: CBC with Diff; Complete Time: 19:34 kb 03/22 16:36 Order name: D-Dimer; Complete Time: 19:34 kb 03/22 16:36 Order name: Ferritin; Complete Time: 19:34 kb 03/22 16:36 Order name: LFT's; Complete Time: 19:34 kb 03/22 16:36 Order name: Lactate; Complete Time: 19:34 kb 03/22 19:34 Interpretation: Abnormal: LAC 2.2. cp 03/22 16:36 Order name: Lipase; Complete Time: 19:34 kb 03/22 16:36 Order name: PT-INR; Complete Time: 19:34 kb 03/22 16:36 Order name: Procalcitonin; Complete Time: 19:34 kb 03/22 16:36 Order name: Ptt, Activated; Complete Time: 19:34 kb 03/22 16:36 Order name: Troponin HS; Complete Time: 19:34 kb 03/22 16:36 Order name: COVID-19 SARS RT PCR (Document "Date of Onset" if Symptomatic); Complete kb Time: 19:34 03/22 16:37 Order name: Basic Metabolic Panel; Complete Time: 19:34 EDMS 03/22 16:36 Order name: CXR XRAY; Complete Time: 19:34 kb 03/22 16:36 Order name: EKG; Complete Time: 16:37 kb 03/22 18:24 Order name: CRP cp 03/22 18:24 Order name: CT Chest For PE Angio; Complete Time: 19:34 cp 03/22 23:17 Order name: Lactate Sepsis 2 HR Follow-up EDCT 03/23 00:12 Order name: Creatine Phosphokinase EDCT 03/23 00:12 Order name: Creatine Phosphokinase EDCT 03/23 00:12 Order name: Creatine Phosphokinase [facility] 03/23 00:12 Order name: Lipid Profile [facility] 03/23 16:56 Order name: Glucose, Ancillary Testing EDCT 03/23 17:53 Order name: Glucose, Ancillary Testing EDCT 03/23 21:49 Order name: Glucose, Ancillary Testing EDCT 03/22 16:36 Order name: Cardiac monitoring; Complete Time: 19:57 kb 03/22 16:36 Order name: Droplet/Contact Precautions; Complete Time: 19:57 kb 03/22 16:36 Order name: EKG - Nurse/Tech; Complete Time: 18:45 kb 03/22 16:36 Order name: IV Start; Complete Time: 18:54 kb 03/22 16:36 Order name: Labs collected and sent; Complete Time: 19:57 kb 03/22 16:36 Order name: O2 Per Protocol; Complete Time: 19:57 kb 03/22 16:36 Order name: O2 Sat Monitoring; Complete Time: 19:57 kb 03/23 00:12 Order name: CONS Physician Consult EDCT 03/23 00:13 Order name: Respiratory Therapy Consult [facility] 03/23 08:59 Order name: Diet Heart Healthy; Complete Time: 09:00 mh5 EC:40 Rate is 93 beats/min. Rhythm is regular. AR interval is normal. QRS interval is normal. cp QT interval is normal. T waves are Inverted in lead aVR. Interpreted by me. Reviewed by me. Administered Medications: 18:54 Drug: SOLU-Medrol (methylPrednisoLONE) 125 mg Route: IVP; Site: left antecubital; ic1 21:05 Follow up: Response: No adverse reaction flavia 20:45 Drug: NS 0.9% 1000 ml Route: IV; Rate: 1000 ml/hr; Site: left antecubital; flavia 21:58 Follow up: IV Status: Completed infusion flavia 23:00 Follow up: IV Status: Completed infusion; IV Intake: 1000ml flavia 20:45 Drug: Rocephin - (cefTRIAXone) 1 grams Route: IVPB; Infused Over: 30 mins; Site: left flavia antecubital; 20:52 Follow up: Response: No adverse reaction; IV Intake: 100ml flavia 20:52 Drug: Zithromax (azithromycin) 500 mg Route: IVPB; Infused Over: 1 hrs; Site: left flavia antecubital; 22:00 Follow up: IV Status: Completed infusion; IV Intake: 250ml flavia Disposition: 03/24 13:27 Co-signature as Attending Physician, Jose L Gustafson MD I agree with the assessment and kdr plan of care. Disposition Summary: 03/22/21 19:58 Hospitalization Ordered Hospitalization Status: Inpatient Admission cp Provider: Robert Quesada cp Condition: Stable cp Problem: new cp Symptoms: have improved cp Bed/Room Type: Standard cp Location: Telemetry/MedSurg (Inpatient)(03/23/21 23:20) Room Assignment: [facility](03/23/21 23:20) Diagnosis - Pneumonia due to SARS-associated coronavirus cp - Hypoxemia cp Forms: - Medication Reconciliation Form cp - SBAR form cp Signatures: Dispatcher [employer] EDJonna Zafar, HE-C ORTHODONTIC TREATMENT COORDINATOR-Manuela Bryan RN Jose L Worrell MD MD kdr Page, Corey, PA PA cp Prokisch, Amanda RN RN ap3 Gabbie Quiroz RN RN bo Creggett, Iesha RN RN ic1 Corrections: (The following items were deleted from the chart) 03/22 20:35 19:58 Telemetry/MedSurg (Inpatient) cp mw 20:35 19:58 cp mw 03/23 23:20 03/22 20:35 [facility] ER HOLD mw mw 03/23 23:20 03/22 20:35 ERHOLD- mw mw
[2021-03-22] MEDS ORDERED: AZITHROMYCIN 500 MG INJ IVPB ONE (20:24)
[2021-03-22] MEDS ORDERED: CEFTRIAXONE 1000 MG/VIAL ONE (20:24)
[2021-03-22] MEDS ORDERED: NA CHLORIDE 0.9% 100 ML ONE (20:24)
[2021-03-22] MEDS ORDERED: NA CHLORIDE 0.9% 1,000 ML ONE (20:25)
[2021-03-22] MEDS ORDERED: NA CHLORIDE 0.9% 250 ML ONE (20:25)
[2021-03-22] MEDS: NA CHLORIDE 0.9% 1,000 ML IV SCH (23:45)
[2021-03-22] MEDS ORDERED: ONDANSETRON 4 MG/2 ML VIAL IV PRN (23:54)
[2021-03-23] MEDS: dexAMETHasone 10 MG/ML VIAL IV SCH ×3 (01:00→17:00)
[2021-03-23] MEDS ORDERED: dexAMETHasone 4 MG/ML VIAL ONE ×3 (02:28→16:10)
[2021-03-23] MEDS ORDERED: NA CHLORIDE 0.9% 1,000 ML ONE (02:28)
[2021-03-23] MEDS ORDERED: AZITHROMYCIN IV 500 MG in NA CHLORIDE 0.9% 250 ML IVPB SCH (09:00)
[2021-03-23] MEDS: ENOXAPARIN 40 MG/0.4 ML SQ SCH (09:00)
[2021-03-23] MEDS ORDERED: ASPIRIN EC 81 MG TAB PO SCH (09:00)
[2021-03-23] MEDS ORDERED: NA CHLORIDE 0.9% 250 ML ONE (09:15)
[2021-03-23] MEDS ORDERED: AZITHROMYCIN 500 MG INJ IVPB ONE (09:15)
[2021-03-23] MEDS ORDERED: ASPIRIN EC 81 MG TAB PO ONE (09:15)
[2021-03-23] MEDS ORDERED: ENOXAPARIN 40 MG/0.4 ML SQ ONE (09:16)
[2021-03-23] MEDS: NA CHLORIDE 0.9% 1,000 ML IV SCH (09:45)
--- NOTE | 2021-03-23 10:41 | P.CNS ---
Date of Consult: 03/23/21 Reason for Consult: Coronavirus pneumonia Chief Complaint: Shortness of breath History of Present Illness: Patient is 61 years of age admitted with coronavirus pneumonia got tested positive about 4 days ago has come groundglass changes on the CT scan has not been vaccinated doing better currently on 6 L of nasal cannula oxygen history of sleep apnea Allergies No Known Allergies Allergy (Verified 11/07/17 12:39) Home Medications: Losartan Potassium 100 mg PO DAILY 11/07/17 Metoprolol Tartrate 50 mg PO DAILY 11/07/17 Terazosin HCl [Hytrin*] 1 mg PO DAILY AT SUPPER 11/07/17 cloNIDine HCL [Catapres] 0.1 mg PO DAILY PRN 11/07/17 Aspirin Tab [Shawn Aspirin*] 325 mg PO DAILY tab 11/08/17 Dapagliflozin Propanediol [Farxiga] 5 mg PO DAILY 03/23/21 Fluticasone Propionate [Flonase Allergy Relief] 1 spray IN PRN 03/23/21 Hydrochlorothiazide 25 mg PO DAILY 03/23/21 Metformin HCl 500 mg PO BID 03/23/21 - Past Medical/Surgical History Diabetic: No -: glucose "its been right on the edge the last year" -: L knee pain 2016 - has numbness down to toes at times -: chest pain 10 yrs ago. hospitalized but didn't find anything -: heartburn. taking 6 tums/day for "years" -: Sleep apnea -: unbical hernia repair. -: tonsyl - Family History Father Medical History: Heart disease Notes: first bipass in 40's. at age 72 Sister Notes: one had pancreatic the other had uterine - Social History Alcohol use: Yes CD- Drugs: No Caffeine use: Yes Review of Systems General: Weakness Respiratory: Cough, Shortness of Breath Physical Examination Temp Pulse Resp BP Pulse Ox 74 24 H 163/86 H 93 03/23/21 08:00 03/23/21 08:00 03/23/21 08:00 03/23/21 08:00 General: Alert, Oriented x3, Cooperative Laboratory Data (last 24 hrs) 03/22/21 17:57: PT 12.0, INR 1.04, APTT 32.6 03/22/21 17:57: WBC 7.00, Hgb 14.7, Hct 42.7, Plt Count 269 01/28/22 17:57: Sodium 136, Potassium 3.7, BUN 30 H, Creatinine 1.02, Glucose 301 H, Total Bilirubin 0.5, AST 26, ALT 32, Alkaline Phosphatase 68, Lipase 207 - Problems (1) Pneumonia due to coronavirus disease 2018 Current Visit: Yes Status: Acute Plan: Patient is 61 years of age admitted with coronavirus pneumonia CT scan shows bilateral groundglass changes he is doing well labs CAT scans all reviewed will order home oxygen possible discharge tomorrow
--- NOTE | 2021-03-23 11:58 | P.HP ---
Certification for Inpatient Patient admitted to: Inpatient Patient will require the following post-hospital care: None Practitioner: I am a practitioner with admitting privileges, knowledge of patient current condition, hospital course, and medical plan of care. Services: Services provided to patient in accordance with Admission requirements found in Title 42 Section 412.3 of the Code of Federal Regulations Patient History Date of Service: 03/23/21 Primary Care Provider: Shreyas Garland Reason for admission: covid pneumonia History of Present Illness: Patient is an office patient of Shreyas OrtizGarland. History of htn, dm2. The patient and his were also tested positive this past week. The patient was started on prednisone and zithromax. However he was not improving. Had a telemedicine visit yesterday. He was using oxygen. However getting more short of breath. Mrs Garland was to call him today. However she had told him to go to the ER if he worsens. Yesterday afternoon he called and told us he was going to the hospital which is appropriate. His pulse oxygen was going in to the High 80's. He was stablized on 5 lts of nasal cannula Allergies No Known Allergies Allergy (Verified 11/07/17 12:39) Home Medications: Losartan Potassium 100 mg PO DAILY 11/07/17 Metoprolol Tartrate 50 mg PO DAILY 11/07/17 Terazosin HCl [Hytrin*] 1 mg PO DAILY AT SUPPER 11/07/17 cloNIDine HCL [Catapres] 0.1 mg PO DAILY PRN 11/07/17 Aspirin Tab [Shawn Aspirin*] 325 mg PO DAILY tab 11/08/17 Dapagliflozin Propanediol [Farxiga] 5 mg PO DAILY 03/23/21 Fluticasone Propionate [Flonase Allergy Relief] 1 spray IN PRN 03/23/21 Hydrochlorothiazide 25 mg PO DAILY 03/23/21 Metformin HCl 500 mg PO BID 03/23/21 - Past Medical/Surgical History Diabetic: No -: glucose "its been right on the edge the last year" -: L knee pain 2017 - has numbness down to toes at times -: chest pain 10 yrs ago. hospitalized but didn't find anything -: heartburn. taking 6 tums/day for "years" -: Sleep apnea -: unbical hernia repair. -: tonsyl - Family History Father -: Heart disease Notes: first bipass in 40's. at age 72 Sister Notes: one had pancreatic the other had uterine - Social History Alcohol use: Yes CD- Drugs: No Caffeine use: Yes Review of Systems 10-point ROS is otherwise unremarkable Respiratory: Shortness of Breath Physical Examination - Vital Signs Blood Pressure: 163/86 Pulse: 74 Respirations: 24 Pulse Ox (%): 93 - Physical Exam General: Alert, In no apparent distress HEENT: Atraumatic, PERRLA, Mucous membr. moist/pink, EOMI, Sclerae nonicteric Neck: Supple, 2+ carotid pulse no bruit, No LAD, Without JVD or thyroid abnormality Respiratory: Clear to auscultation bilaterally, Normal air movement Cardiovascular: Regular rate/rhythm, Normal S1 S2 Gastrointestinal: Normal bowel sounds, No tenderness Musculoskeletal: No tenderness Integumentary: No rashes Neurological: Normal gait, Normal speech, Normal strength at 5/5 x4 extr, Normal tone, Normal affect Lymphatics: No axilla or inguinal lymphadenopathy - Studies Laboratory Data (last 24 hrs) 03/22/21 17:57: PT 12.0, INR 1.04, APTT 32.6 03/22/21 17:57: WBC 7.00, Hgb 14.7, Hct 42.7, Plt Count 269 03/22/21 17:57: Sodium 136, Potassium 3.7, BUN 30 H, Creatinine 1.02, Glucose 301 H, Total Bilirubin 0.5, AST 26, ALT 32, Alkaline Phosphatase 68, Lipase 207 Assessment and Plan - Problems (Diagnosis) (1) Pneumonia due to coronavirus disease 2018 Current Visit: Yes Status: Acute Plan: will continue steroids, oxygen. Vitamin D and aspirin. He has been seen by Dr. Martini. Hopefully we can wean him down to 4lts or less and send him home with home O2 (2) HTN (hypertension) Current Visit: Yes Status: Acute Plan: bp stable will start his home meds and monitor Qualifiers: Hypertension type: primary hypertension Qualified Code(s): I10 - Essential (primary) hypertension (3) DM2 (diabetes mellitus, type 2) Current Visit: Yes Status: Acute Plan: restart metformin and cover with an insulin sliding scale. Qualifiers: Diabetes mellitus custodial insulin use: without custodial use Discharge Plan: Home Plan to discharge in: 24 Hours - Advance Directives Does patient have a Living Will: No Does patient have a Durable POA for Healthcare: No - Code Status/Comfort Care Code Status Assessed: Yes Code Status: Full Code Physician Review: Patient Assessed, Agree with Above Assessment and Plan Critical Care: No Time Spent Managing Pts Care (In Minutes): 45
[2021-03-23] MEDS ORDERED: HOME MED 1 EA UNK (Fluticasone Propionate [Flonase Allergy Relief] 9.9 ML Spray.Susp) NAS SCH (12:00)
[2021-03-23] MEDS ORDERED: INFLUENZA VACCINE (for 6+ mo) 0.5 ML DOSE IMVAC ONE (16:00)
[2021-03-23] MEDS ORDERED: METFORMIN HCL 500 MG TAB ONE (16:10)
[2021-03-23] MEDS ORDERED: GLUCAGON 1 MG/VIAL IM PRN ×2 (16:48→17:08)
[2021-03-23] MEDS ORDERED: D50W 25 GM/50 ML SYRINGE IV PRN ×2 (16:48→17:08)
[2021-03-23] MEDS ORDERED: INSULIN -REGULAR HUMAN 50 UNIT/0.5 ML ML ONE ×2 (16:57→20:47)
[2021-03-23] MEDS ORDERED: TERAZOSIN HCL 1 MG CAP PO SCH (17:00)
[2021-03-23] MEDS: METFORMIN HCL 500 MG TAB PO SCH (17:00)
[2021-03-23] MEDS ORDERED: INSULIN -REGULAR HUMAN 50 UNIT/0.5 ML ML IV ONE (17:09)
[2021-03-23] MEDS ORDERED: INSULIN -REGULAR HUMAN 50 UNIT/0.5 ML ML IV SCH (17:15)
[2021-03-23] MEDS: INSULIN -REGULAR HUMAN 50 UNIT/0.5 ML ML IV SCH (20:45)
[2021-03-23] MEDS ORDERED: INSULIN -REGULAR HUMAN 50 UNIT/0.5 ML ML SQ SCH ×2 (21:00)
[2021-03-24] MEDS: dexAMETHasone 10 MG/ML VIAL IV SCH ×2 (01:00→08:11)
[2021-03-24 06:32] LABS: Hematocrit 44.6 % (39.6-49.0); Lymphocytes % 9.3 % (15.3-44.8); MPV 7.7 fL (7.6-11.3); RBC Red Blood Cell Count 5.14 M/uL (4.33-5.43)
[2021-03-24 06:53] LABS: Bilirubin Total 0.5 mg/dL (0.2-1.0); Potassium 4.2 mmol/L (3.5-5.1); Protein, Total 7.2 g/dL (6.4-8.2)
[2021-03-24] MEDS: METFORMIN HCL 500 MG TAB PO SCH (08:10)
[2021-03-24] MEDS: INSULIN -REGULAR HUMAN 50 UNIT/0.5 ML ML IV SCH ×3 (08:10→16:15)
[2021-03-24] MEDS: ENOXAPARIN 40 MG/0.4 ML SQ SCH (08:11)
[2021-03-24] MEDS ORDERED: HOME MED 1 EA UNK (Dapagliflozin Propanediol [Farxiga] 5 MG Tablet) PO SCH (09:00)
[2021-03-24] MEDS ORDERED: hydroCHLOROthiazide 25 MG TAB PO SCH (09:00)
[2021-03-24] MEDS ORDERED: LOSARTAN POTASSIUM 50 MG TABLET PO SCH (09:00)
[2021-03-24] MEDS ORDERED: ASPIRIN 325 MG TAB PO SCH (09:00)
[2021-03-24] MEDS ORDERED: HOME MED 1 EA UNK (Metoprolol Tartrate [Metoprolol Tartrate] 100 MG Tablet) PO SCH (09:00)
[2021-03-24] MEDS ORDERED: METOPROLOL TAR 50 MG TAB PO SCH (09:00)
[2021-03-24] MEDS ORDERED: VITAMIN D 5,000 UNIT CAP PO SCH (09:00)
[2021-03-24] MEDS ORDERED: HYDROCHLOROTHIAZIDE 50 MG PO SCH (09:00)
[2021-03-24] MEDS ORDERED: HOME MED 1 EA UNK (Losartan Potassium [Losartan Potassium] 100 MG Tablet) PO SCH (09:00)
[2021-03-24] MEDS ORDERED: ZINC SULFATE 220 MG CAP PO SCH (09:00)
[2021-03-24 09:57] LABS: Blood Morphology Comment NOT SEEN (NOT SEEN); Platelet Estimate ADEQ; White Blood Cell Scan OK (OK)
[2021-03-24 10:23] VITALS: O2SAT 92
--- NOTE | 2021-03-24 11:08 | P.PN ---
Subjective Date of Service: 03/24/21 Primary Care Provider: Shreyas Garland Chief Complaint: covid pneumonia Subjective: Improving (oxygen requirements down to 3-4 lts.) Review of Systems 10-point ROS is otherwise unremarkable Respiratory: SOB with Excertion Physical Examination - Vital Signs Temperature: 97.0 F Blood Pressure: 181/100 Pulse: 70 Respirations: 20 Pulse Ox (%): 96 - Physical Exam General: Alert, In no apparent distress HEENT: Atraumatic, PERRLA, EOMI Neck: Supple, JVD not distended Respiratory: Clear to auscultation bilaterally, Normal air movement Cardiovascular: Regular rate/rhythm, Normal S1 S2 Gastrointestinal: Normal bowel sounds, No tenderness Musculoskeletal: No tenderness Integumentary: No rashes Neurological: Normal speech, Normal tone, Normal affect Lymphatics: No axilla or inguinal lymphadenopathy Assessment & Plan - Problems (Diagnosis) (1) Pneumonia due to coronavirus disease 2018 Current Visit: Yes Status: Acute Plan: will continue steroids, oxygen. Vitamin D and aspirin. He has been seen by Dr. Martini. Hopefully we can wean him down to 4lts or less and send him home with home O2 03/24 Patient doing well. We can arrange home oxygen and send him home on steroids for 3 days (2) HTN (hypertension) Current Visit: Yes Status: Acute Plan: bp stable will start his home meds and monitor Qualifiers: Hypertension type: primary hypertension Qualified Code(s): I10 - Essential (primary) hypertension (3) DM2 (diabetes mellitus, type 2) Current Visit: Yes Status: Acute Plan: restart metformin and cover with an insulin sliding scale. 03/24 Patient not well controlled. most likely due to the steroids. Will increase his farxiga and then his metformin. Qualifiers: Diabetes mellitus mcc insulin use: without mcc use Diabetes mellitus complication status: without complication Qualified Code(s): E11.9 - Type 2 diabetes mellitus without complications Discharge Plan: Home Plan to discharge in: 24 Hours - Code Status/Comfort Care Code Status Assessed: No Physician Review: Patient Assessed, Agree with Above Assessment and Plan Critical Care: No Time Spent Managing Pts Care (In Minutes): 20
[2021-03-24 12:33] VITALS: BP 178/92; TEMP 96.7
[2021-03-24] MEDS ORDERED: METFORMIN HCL 500 MG TAB PO SCH (17:00)
--- NOTE | 2021-03-25 19:25 | P.DS ---
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 History of htn, dm2. The patient and his were also tested positive this past week. The patient was started on prednisone and zithromax. However he was not improving. Had a telemedicine vi sit yesterday. He was using oxygen. However getting more short of breath. Mrs Garland was to call him today. However she had told him to go to the ER if he worsens. Yesterday afternoon he called and told us he was going to the hospital which is appropriate. His pulse oxygen was going in to the High 80's. He was stablized on 5 lts of nasal cannula Hospital Course: Patient admitted with covid pneumonia. The patient was admitted and started on steroids and oxygen. He improved after 2 days. No longer qualified for oxygen as he was at 90% on Room Air. Will discharge him home and have the patient follow up in the office in a weeks. Vital Signs/Physical Exam: Temp Pulse Resp BP Pulse Ox 96.7 F L 63 20 178/92 H 94 03/24/21 12:00 03/24/21 12:00 03/24/21 12:00 03/24/21 12:00 03/24/21 12:00 General: Alert, In no apparent distress HEENT: Atraumatic, PERRLA, EOMI Neck: Supple, JVD not distended Respiratory: Clear to auscultation bilaterally, Normal air movement Cardiovascular: Regular rate/rhythm, Normal S1 S2 Gastrointestinal: Normal bowel sounds, No tenderness Musculoskeletal: No tenderness Integumentary: No rashes Neurological: Normal speech, Normal tone, Normal affect Lymphatics: No axilla or inguinal lymphadenopathy Laboratory Data at Discharge: WBC 10.40 K/uL (4.3-10.9) D 03/24/21 06:18 Hgb 15.2 g/dL (13.6-17.9) 03/24/21 06:18 Hct 44.6 % (39.6-49.0) 03/24/21 06:18 Plt Count 302 K/uL (152-406) 03/24/21 06:18 PT 12.0 SECONDS (9.5-12.5) 03/22/21 17:57 INR 1.04 03/22/21 17:57 APTT 32.6 SECONDS (24.3-36.9) 03/22/21 17:57 Sodium 137 mmol/L (136-145) 03/24/21 06:18 Sodium Cancelled 03/24/21 06:18 Potassium 4.2 mmol/L (3.5-5.1) 03/24/21 06:18 Potassium Cancelled 03/24/21 06:18 BUN 26 mg/dL (7-18) H 03/24/21 06:18 BUN Cancelled 03/24/21 06:18 Creatinine 0.92 mg/dL (0.55-1.3) 03/24/21 06:18 Creatinine Cancelled 03/24/21 06:18 Glucose 378 mg/dL (74-106) H 03/24/21 06:18 Glucose Cancelled 03/24/21 06:18 Magnesium 2.4 mg/dL (1.8-2.4) 03/24/21 06:18 Total Bilirubin 0.5 mg/dL (0.2-1.0) 03/24/21 06:18 AST 24 U/L (15-37) 03/24/21 06:18 ALT 34 U/L (12-78) 03/24/21 06:18 Alkaline Phosphatase 65 U/L (45-117) 03/24/21 06:18 Triglycerides 201 mg/dL (<150) H 03/23/21 01:53 Cholesterol 146 mg/dL (<200) 03/23/21 01:53 HDL Cholesterol 21 mg/dL (40-60) L 03/23/21 01:53 Cholesterol/HDL Ratio 6.95 03/23/21 01:53 Lipase 207 U/L (73-393) 01/28/22 17:57 Home Medications: Losartan Potassium 100 mg PO DAILY 11/07/17 Metoprolol Tartrate 50 mg PO DAILY 11/07/17 Terazosin HCl [Hytrin*] 1 mg PO DAILY AT SUPPER 11/07/17 Aspirin Tab [Shawn Aspirin*] 325 mg PO DAILY tab 11/08/17 Dapagliflozin Propanediol [Farxiga] 5 mg PO DAILY 03/23/21 Fluticasone Propionate [Flonase Allergy Relief] 1 spray IN PRN 03/23/21 Hydrochlorothiazide 25 mg PO DAILY 03/23/21 Metformin HCl 500 mg PO BID 03/23/21 Metformin HCl 1,000 mg PO BID 15 Days #30 tablet 03/24/21 dexAMETHasone [Decadron] 4 mg PO BID 3 Days #6 tab 03/24/21 New Medications: dexAMETHasone [Decadron] 4 mg PO BID 3 Days #6 tab Metformin HCl 1,000 mg PO BID 15 Days #30 tablet Diet: ADA Activity: Ad rosendo Followup: Osmani Araujo MD [ACTIVE - CAN ADMIT] - Robert Quesada MD [Primary Care Provider] - Time spent managing pt's care (in minutes): 30
== END 2021-03-24 16:31 | disposition home or self-care (01) | DRG 177 ==
LOC: ER 16:12 → ERHOLD 23:52 → UNDOADMIN 03-23 01:33 → 4TH 03-23 23:51
PROVIDERS: ADMIT Internal Medicine; ATTEND Internal Medicine
DX: U07.1 COVID-19 (principal); J12.82 Pneumonia due to coronavirus disease 2019; E11.9 Type 2 diabetes mellitus without complications; I10 Essential (primary) hypertension; R09.02 Hypoxemia; Z79.84 Long term (current) use of oral hypoglycemic drugs; Z79.899 Other long term (current) drug therapy; Z79.82 Long term (current) use of aspirin
CPT/HCPCS: 36415; 71045; 71275; 80048; 80053; 80061; 80076; 82550; 82728; 82947; 83605; 83690; 83735; 84145; 84484; 85025; 85379; 85610; 85730; 86140; 87040; 93005; 96365; 96375; 99285; J0456; J1100; J1650; J2930; J7030; J7050; Q9967; U0003